=== PATIENT | female | born 1940 | race Caucasian/White ===

== ENCOUNTER 2016-12-01 10:20 | Outpatient (CLI) | payer MEDICARE, OTHER ==
[2015-10-12 12:01] VITALS: BP 205/90
== END 2016-12-01 10:30 ==
LOC: POD 10:20
PROVIDERS: ATTEND Podiatrist Public Medicine
DX: M20.41 Other hammer toe(s) (acquired), right foot (principal); M20.42 Other hammer toe(s) (acquired), left foot
CPT/HCPCS: G0463

== ENCOUNTER 2017-04-20 15:57 | Outpatient (CLI) | payer MEDICARE, OTHER ==
[2015-10-12 12:01] VITALS: BP 205/90
--- NOTE | 2017-04-20 20:41 | Diagnostic Imaging Report ---
IJEOMA DODSON [facility] [id number] [facility]ly [facility] [address] [address] Report Submission Date: Apr 20, 2017 4:25:14 PM CDT Patient Study Name: DEVIN SIEGEL Date: Apr 20, 2017 4:03:07 PM CDT Modality Type: CR Gender: F Description: SHOULDER : 36 Institution: [facility] Physician: IJEOMA DODSON Right shoulder 2 views Clinical history: Right shoulder pain for 3 weeks with limited range of motion . No visible fracture, dislocation or bone destruction. No visible radiopaque foreign bodies. No soft tissue calcifications. Mild osteoarthrosis of the right acromioclavicular joint Impression: Mild osteoarthrosis of the right acromioclavicular joint No acute process in the right shoulder . Electronically signed on Apr 20, 2017 4:25:14 PM CDT by: Carlos ALEX
== END 2017-04-20 16:00 ==
LOC: RAD 15:57
PROVIDERS: ATTEND Family Medicine
DX: M25.511 Pain in right shoulder (principal)
CPT/HCPCS: 73030

== ENCOUNTER 2017-08-31 08:57 | Outpatient (CLI) | payer MEDICARE, OTHER ==
[2015-10-12 12:01] VITALS: BP 205/90
[2017-08-31 09:24] LABS: BASOPHILS % 0.7 (0.0-1.5); EOSINOPHILS % 4.9 % (0.0-6.8); MEAN CORPUSCULAR HEMOGLOBIN 31.2 pg (28.0-34.0); MEAN CORPUSCULAR VOLUME 94.8 fl (80.0-100.0); MONOCYTES % 5.3 % (0.0-11.0); NEUTROPHILS # 3.3 # k/uL (1.4-7.7)
[2017-08-31 09:48] LABS: eGFR (African) > 60; eGFR (Non-African) > 60
== END 2017-08-31 09:00 ==
LOC: LAB 08:57
PROVIDERS: ATTEND Internal Medicine Cardiovascular Disease
DX: I10 Essential (primary) hypertension (principal); R79.9 Abnormal finding of blood chemistry, unspecified; E78.4 Other hyperlipidemia; E55.9 Vitamin D deficiency, unspecified
CPT/HCPCS: 36415; 80053; 80061; 82306; 83036; 84443; 85025

== ENCOUNTER 2018-08-24 09:18 | Outpatient (CLI) | payer MEDICARE, OTHER ==
[2015-10-12 12:01] VITALS: BP 205/90
== END 2018-08-24 09:20 ==
LOC: LAB 09:18
PROVIDERS: ATTEND Internal Medicine Cardiovascular Disease
DX: R79.9 Abnormal finding of blood chemistry, unspecified (principal); E78.49 Other hyperlipidemia; E55.9 Vitamin D deficiency, unspecified; I65.23 Occlusion and stenosis of bilateral carotid arteries
CPT/HCPCS: 36415; 80061; 82306; 83036; 84443

== ENCOUNTER 2019-08-24 10:52 | Outpatient (CLI) | payer MEDICARE, OTHER ==
[2015-10-12 12:01] VITALS: BP 205/90
[2019-08-24 11:59] LABS: A1C 5.8 % (<5.7); HDL 51 mg/dL (>40); eGFR (Non-African) > 60
== END 2019-08-24 10:57 ==
LOC: LAB 10:52
PROVIDERS: ATTEND Internal Medicine Cardiovascular Disease
DX: I10 Essential (primary) hypertension (principal); I34.9 Nonrheumatic mitral valve disorder, unspecified; I65.23 Occlusion and stenosis of bilateral carotid arteries
CPT/HCPCS: 36415; 80053; 80061; 82306; 83036; 84443; 85027